=== PATIENT | female | born 1985 | race Caucasian/White ===

== ENCOUNTER 2022-12-04 21:06 | Emergency (ER) | payer MEDICAID ==
[2022-12-04] MEDS ORDERED: Ketorolac 60 MG/2 ML SDV IM ONE (21:53)
== END 2022-12-04 22:11 | disposition home or self-care (01) ==
LOC: JD.ED 21:06
DX: R51.9 Headache, unspecified (principal); F17.210 Nicotine dependence, cigarettes, uncomplicated; Z88.2 Allergy status to sulfonamides
CPT/HCPCS: 96372; 99283; J1885; 99282